=== PATIENT | female | born 1930 | race Caucasian/White ===

== ENCOUNTER → 2016-09-20 | Outpatient (CLI) | payer OTHER ==
[~2016-09-20] MED LIST: AMLO-110 PO; ASPEC81 PO; ATEN-173 PO; CHOL100027 PO; CLTP PO; FURO-85 PO; ISOS30TA3 PO; LEVO50TA PO; LISI-725 PO; MULT-190 PO; MULT-506 PO; POTA-327 PO; SIMV20TA5 PO; ZNT/150 PO
[2016-09-20 17:45] LABS: MEAN CELL VOLUME 91.6 fL (80-100); MEAN CORPUSCULAR HGB CONC 33.9 g/dl (32-36); MEAN PLATELET VOLUME 10.8 fL (7.4-10.4); PLATELET COUNT 182 K/uL (130-400); RED BLOOD COUNT 3.93 M/uL (4.2-5.4); WHITE BLOOD COUNT 5.93 K/uL (4.8-10.8)
[2016-09-20 17:46] LABS: BLOOD UREA NITROGEN 30 mg/dl (7-18); BUN/CREATININE RATIO 17.9 (10-20); CALCIUM 9.4 mg/dl (8.5-10.1); CARBON DIOXIDE 24 mmol/L (21-32); CHLORIDE 105 mmol/L (98-107); GLUCOSE 110 mg/dl (70-99); POTASSIUM 4.3 mmol/L (3.5-5.1); SODIUM 137 mmol/L (136-145)
[2016-09-20 17:47] LABS: PHOSPHORUS 3.8 mg/dl (2.5-4.9)
[2016-09-20 17:56] LABS: URINE PROTIEN/CREAT RATIO 0.3 (0-0.2); URINE TOTAL PROTEIN 17.9 mg/dl (0-11.9)
[2016-09-20 18:03] LABS: URINE APPEARANCE CLEAR (CLEAR); URINE BILIRUBIN NEG (NEG); URINE COLOR YELLOW; URINE EPITHELIAL CELL AUTO >30 /lpf (0-5); URINE NITRITE NEG (NEG); URINE PH 5.5 (4.5-7.5); URINE SPECIFIC GRAVITY 1.006 (1.000-1.030); UROBILINOGEN NEG (NEG)
[2016-09-20 18:09] LABS: MANUAL MICROSCOPIC REQUIRED? NO; REVIEW REQ? NO
== END | disposition home or self-care (01) ==
LOC: C.LABPVFM 13:26
PROVIDERS: ATTEND Internal Medicine Nephrology
DX: I12.9 Hypertensive chronic kidney disease with stage 1 through stage 4 chronic kidney disease, or unspecified chronic kidney disease (principal); N18.3 Chronic kidney disease, stage 3 (moderate); N25.81 Secondary hyperparathyroidism of renal origin; R80.9 Proteinuria, unspecified; D64.9 Anemia, unspecified; H90.2 Conductive hearing loss, unspecified

== ENCOUNTER → 2016-12-11 | Outpatient (CLI) | payer OTHER ==
[2016-12-11 13:15] LABS: ESTIMATED AVERAGE GLUCOSE 169 mg/dl; HA1C FLAG Normal (Normal)
[2016-12-11 13:49] LABS: BLOOD UREA NITROGEN 41 mg/dl (7-18); BUN/CREATININE RATIO 22.6 (10-20); CALCIUM 9.8 mg/dl (8.5-10.1); CARBON DIOXIDE 22 mmol/L (21-32); CHLORIDE 106 mmol/L (98-107); CHOLESTEROL 152 mg/dl (0-200); GLUCOSE 123 mg/dl (70-99); POTASSIUM 4.6 mmol/L (3.5-5.1); SODIUM 140 mmol/L (136-145); TRIGLYCERIDES 324 mg/dl (0-150); VERY LOW DENSITY LIPOPROT CALC 65 mg/dl
[2016-12-11 13:56] LABS: CHOLESTEROL/HDL RATIO 3.5; HDL CHOLESTEROL 43 mg/dl; LDL CHOLESTEROL CALCULATED 44 mg/dl
== END | disposition home or self-care (01) ==
LOC: C.LABPVFM 10:00
PROVIDERS: ATTEND Family Medicine
DX: E78.2 Mixed hyperlipidemia (principal); E11.9 Type 2 diabetes mellitus without complications; E03.9 Hypothyroidism, unspecified

== ENCOUNTER → 2017-03-22 | Outpatient (CLI) | payer OTHER ==
[2017-03-22 12:20] LABS: HEMATOCRIT 36.2 % (37-47); MEAN CELL VOLUME 95.3 fL (80-100); MEAN CORPUSCULAR HEMOGLOBIN 31.6 pg (25-34); MEAN CORPUSCULAR HGB CONC 33.1 g/dl (32-36); MEAN PLATELET VOLUME 10.5 fL (7.4-10.4); PLATELET COUNT 185 K/uL (130-400); WHITE BLOOD COUNT 5.65 K/uL (4.8-10.8)
[2017-03-22 12:37] LABS: URINE APPEARANCE CLEAR (CLEAR); URINE BILIRUBIN NEG (NEG); URINE COLOR YELLOW; URINE EPITHELIAL CELL AUTO >30 /lpf (0-5); URINE NITRITE NEG (NEG); URINE SPECIFIC GRAVITY 1.015 (1.000-1.030); UROBILINOGEN NEG (NEG)
[2017-03-22 12:46] LABS: MANUAL MICROSCOPIC REQUIRED? NO; REVIEW REQ? NO
[2017-03-22 12:48] LABS: URINE PROTIEN/CREAT RATIO 0.3 (0-0.2); URINE TOTAL PROTEIN 10.3 mg/dl (0-11.9)
[2017-03-22 13:00] LABS: BLOOD UREA NITROGEN 41 mg/dl (7-18); BUN/CREATININE RATIO 22.8 (10-20); CALCIUM 9.8 mg/dl (8.5-10.1); CARBON DIOXIDE 22 mmol/L (21-32); CHLORIDE 106 mmol/L (98-107); GLUCOSE 163 mg/dl (70-99); POTASSIUM 4.6 mmol/L (3.5-5.1); SODIUM 135 mmol/L (136-145)
[2017-03-22 13:01] LABS: PHOSPHORUS 3.7 mg/dl (2.5-4.9)
== END | disposition home or self-care (01) ==
LOC: C.LABPVFM 09:34
PROVIDERS: ATTEND Internal Medicine Nephrology
DX: I12.9 Hypertensive chronic kidney disease with stage 1 through stage 4 chronic kidney disease, or unspecified chronic kidney disease (principal); N18.3 Chronic kidney disease, stage 3 (moderate); N25.81 Secondary hyperparathyroidism of renal origin; R80.9 Proteinuria, unspecified; D64.9 Anemia, unspecified

== ENCOUNTER → 2017-08-15 | Outpatient (CLI) | payer OTHER ==
[2017-08-15 12:57] LABS: HEMATOCRIT 35.6 % (37-47); MEAN CELL VOLUME 94.7 fL (80-100); MEAN CORPUSCULAR HEMOGLOBIN 31.9 pg (25-34); MEAN CORPUSCULAR HGB CONC 33.7 g/dl (32-36); MEAN PLATELET VOLUME 10.4 fL (7.4-10.4); PLATELET COUNT 181 K/uL (130-400); RED CELL DISTRIBUTION WIDTH CV 13.6 % (11.5-14.5); RED CELL DISTRIBUTION WIDTH SD 46.7 fL (36.4-46.3)
[2017-08-15 13:21] LABS: ALBUMIN 3.5 gm/dl (3.4-5.0); ALT/SGPT 19 U/L (12-78); AST/SGOT 14 U/L (15-37); BLOOD UREA NITROGEN 31 mg/dl (7-18); CALCIUM 9.5 mg/dl (8.5-10.1); CARBON DIOXIDE 24 mmol/L (21-32); CREATININE 1.71 mg/dl (0.60-1.20); GLUCOSE 129 mg/dl (70-99); HEMOGLOBIN A1C 7.4 % (4.5-5.6); POTASSIUM 4.2 mmol/L (3.5-5.1); SODIUM 135 mmol/L (136-145)
[2017-08-15 13:23] LABS: ALKALINE PHOSPHATASE 81 U/L (45-117); CHOLESTEROL 162 mg/dl (0-200); LDL CHOLESTEROL CALCULATED 50 mg/dl
== END | disposition home or self-care (01) ==
LOC: C.LABPVFM 10:28
PROVIDERS: ATTEND Family Medicine
DX: E03.9 Hypothyroidism, unspecified (principal); E78.2 Mixed hyperlipidemia

== ENCOUNTER → 2017-09-18 | Outpatient (CLI) | payer OTHER ==
[2017-09-18 17:38] LABS: HEMATOCRIT 35.4 % (37-47); MEAN CELL VOLUME 95.2 fL (80-100); MEAN CORPUSCULAR HEMOGLOBIN 32.3 pg (25-34); MEAN CORPUSCULAR HGB CONC 33.9 g/dl (32-36); MEAN PLATELET VOLUME 10.5 fL (7.4-10.4); PLATELET COUNT 209 K/uL (130-400); RED CELL DISTRIBUTION WIDTH CV 13.4 % (11.5-14.5); RED CELL DISTRIBUTION WIDTH SD 46.6 fL (36.4-46.3); WHITE BLOOD COUNT 5.92 K/uL (4.8-10.8)
[2017-09-18 18:13] LABS: ALBUMIN 3.7 gm/dl (3.4-5.0); BLOOD UREA NITROGEN 31 mg/dl (7-18); CALCIUM 9.9 mg/dl (8.5-10.1); CARBON DIOXIDE 24 mmol/L (21-32); CREATININE 1.71 mg/dl (0.60-1.20); GLUCOSE 108 mg/dl (70-99); PHOSPHORUS 3.6 mg/dl (2.5-4.9); SODIUM 136 mmol/L (136-145)
== END | disposition home or self-care (01) ==
LOC: C.LABPVFM 13:05
PROVIDERS: ATTEND Internal Medicine Nephrology
DX: N18.3 Chronic kidney disease, stage 3 (moderate) (principal); N25.81 Secondary hyperparathyroidism of renal origin; D64.9 Anemia, unspecified; R80.9 Proteinuria, unspecified

== ENCOUNTER → 2017-09-23 | Outpatient (CLI) | payer OTHER | END | disposition home or self-care (01) | LOC: C.LABPVFM 18:07 | PROVIDERS: ATTEND Internal Medicine Nephrology | DX: N18.3 Chronic kidney disease, stage 3 (moderate) (principal); I12.9 Hypertensive chronic kidney disease with stage 1 through stage 4 chronic kidney disease, or unspecified chronic kidney disease; N25.81 Secondary hyperparathyroidism of renal origin; D64.9 Anemia, unspecified; R80.9 Proteinuria, unspecified ==

== ENCOUNTER → 2018-02-11 | Outpatient (CLI) | payer OTHER ==
[~2018-02-11] MED LIST changes: -AMLO-110 PO; +AMLO5TAB3 PO
[2018-02-11 17:11] LABS: BASO % 0.3 %; BASO ABS # 0.02 K/uL (0-0.2); HEMATOCRIT 35.8 % (37-47); HEMOGLOBIN 12.1 g/dL (12.0-16.0); IG# 0.02 K/uL (0.00-0.02); LYMPH % 20.8 %; LYMPH ABS # 1.35 K/uL (1.2-3.4); MEAN CELL VOLUME 96.5 fL (80-100); MEAN CORPUSCULAR HEMOGLOBIN 32.6 pg (25-34); MEAN CORPUSCULAR HGB CONC 33.8 g/dl (32-36); MEAN PLATELET VOLUME 10.6 fL (7.4-10.4); MONO ABS # 0.65 K/uL (0.11-0.59); NEUT % 68.6 %; NEUT ABS # 4.45 K/uL (1.4-6.5); PLATELET COUNT 194 K/uL (130-400); RED CELL DISTRIBUTION WIDTH CV 13.2 % (11.5-14.5); RED CELL DISTRIBUTION WIDTH SD 45.8 fL (36.4-46.3); WHITE BLOOD COUNT 6.49 K/uL (4.8-10.8)
[2018-02-11 17:31] LABS: ALKALINE PHOSPHATASE 82 U/L (45-117); ALT/SGPT 18 U/L (12-78); AST/SGOT 17 U/L (15-37); BLOOD UREA NITROGEN 42 mg/dl (7-18); CALCIUM 9.5 mg/dl (8.5-10.1); CARBON DIOXIDE 23 mmol/L (21-32); CHOLESTEROL 153 mg/dl (0-200); CREATININE 1.94 mg/dl (0.60-1.20); GLUCOSE 100 mg/dl (70-99); LDL CHOLESTEROL CALCULATED 51 mg/dl; POTASSIUM 4.3 mmol/L (3.5-5.1); SODIUM 136 mmol/L (136-145); TOTAL PROTEIN 8.1 gm/dl (6.4-8.2)
[2018-02-12 06:17] LABS: HEMOGLOBIN A1C 7.3 % (4.5-5.6)
== END | disposition home or self-care (01) ==
LOC: C.LABPVFM 13:25
PROVIDERS: ATTEND Family Medicine
DX: R41.3 Other amnesia (principal); I12.9 Hypertensive chronic kidney disease with stage 1 through stage 4 chronic kidney disease, or unspecified chronic kidney disease; E11.9 Type 2 diabetes mellitus without complications; N18.3 Chronic kidney disease, stage 3 (moderate)

== ENCOUNTER 2020-03-25 19:00 | Inpatient (IN) ==
[2020-03-25] MEDS ORDERED: ONDANSETRON INJ 2 MG/ML 2 ML VIAL IV STA (19:34)
[2020-03-25] MEDS: fentaNYL citrate 100 MCG/2 ML VIAL IV PRN ×2 (19:50→20:40)
--- NOTE | 2020-03-25 20:03 | XRay Report ---
XR chest 1V portable HISTORY: Atypical Chest Pain COMPARISON: Chest 08/26/2013. FINDINGS: No focal lung consolidations to suggest pneumonia. No evidence for pulmonary edema. The hea rt is normal in size. There is a left-sided dual-chamber pacemaker. No pleural effusions. No pneumoth orax. The bones are osteopenic. IMPRESSION: No significant change compared to the prior study. No acute process. ACT 112: Negative or not required by law. Electronically signed by: Uli Reyes M.D. 03/25/2020 8:02 PM
[2020-03-25 20:19] LABS: Basophils # (auto) 0.02 K/uL (0-0.2); Basophils % (auto) 0.2 %; Hematocrit (blood only) 38.1 % (37-47); Hemoglobin 13.1 g/dL (12.0-16.0); Immature Granulocytes # (auto) 0.09 K/uL (0.00-0.02); Immature Granulocytes % (auto) 0.7 %; Lymphocytes # (auto) 0.79 K/uL (1.2-3.4); Lymphocytes % (auto) 5.9 %; Mean Corpuscular Hemoglobin 31.2 pg (25-34); Mean Corpuscular Hgb Conc 34.4 g/dL (32-36); Mean Corpuscular Volume 90.7 fL (80-100); Mean Platelet Volume 9.2 fL (7.4-10.4); Monocytes # (auto) 0.73 K/uL (0.11-0.59); Monocytes % (auto) 5.5 %; Neutrophils # (auto) 11.68 K/uL (1.4-6.5); Neutrophils % (auto) 87.7 %; Platelet Count 176 K/uL (130-400); RDW Coefficient of Variation 13.3 % (11.5-14.5); RDW Standard Deviation 43.9 fL (36.4-46.3); White Blood Count 13.31 K/uL (4.8-10.8)
[2020-03-25 20:30] LABS: INR 1.1 (0.9-1.1); Partial Thromboplastin Ratio 1.2; Partial Thromboplastin Time 33.5 Seconds (21.0-31.0); Prothrombin Time 11.2 Seconds (9.0-12.0)
[2020-03-25 20:36] LABS: Alanine Aminotransferase 18 U/L (12-78); Albumin Level 3.2 gm/dl (3.4-5.0); Aspartate Aminotransferase 17 U/L (15-37); BUN Creatinine Ratio 26.5 (10-20); Blood Urea Nitrogen 40 mg/dl (7-18); Calcium 9.5 mg/dl (8.5-10.1); Carbon Dioxide 14 mmol/L (21-32); Chloride 102 mmol/L (98-107); Creatinine Clr Calc Pharmacy 24.5 ml/min; Est GFR (African American) 35.7; Est GFR (Non-African American) 30.8; Glucose 192 mg/dl (70-99); Lipase 300 U/L (73-393); Potassium 4.1 mmol/L (3.5-5.1); Sodium 130 mmol/L (136-145)
[2020-03-25 20:39] LABS: Albumin Globulin Ratio 0.7 (0.9-2); Alkaline Phosphatase 108 U/L (45-117); Bilirubin,Total 0.5 mg/dl (0.2-1); Globulin 4.3 gm/dl (2.5-4.0); Total Protein 7.5 gm/dl (6.4-8.2); Troponin I < 0.015 ng/ml (0-0.045)
--- NOTE | 2020-03-25 20:49 | CT Scan Report ---
ABDOMEN AND PELVIS CT WITHOUT CONTRAST CT DOSE: 736.93 mGy.cm HISTORY: Lower abdominal pain. TECHNIQUE: Multiaxial CT images of the abdomen and pelvis were performed without contrast. A dose lo wering technique was utilized adhering to the principles of ALARA. COMPARISON STUDY: None. FINDINGS: There is a 4 mm nodule within the right middle lobe. There are also 4 mm nodules within the lingula and left lower lobe on image 57. Pacemaker wires are noted. No pneumoperitoneum. No pneumato sis. No suspicious lytic or blastic osseous lesions. Suboptimal evaluation due to the motion artifact . Specifically, this affects the right upper quadrant with near nondiagnostic evaluation of the dista l stomach/duodenum, herbie hepatis, and pancreatic head. The gallbladder appears surgically absent. Th e unenhanced liver, pancreas, and spleen appear grossly unremarkable. Normal adrenal glands. The kidn eys are also suboptimally assessed due to motion artifact. However, no hydronephrosis. No retroperito nayely lymphadenopathy. Moderate calcified plaque within the normal caliber abdominal aorta. There is a large duodenal diverticulum. Questionable inflammatory change surrounding the proximal duodenum. How ever, this could be due to the motion artifact. The bladder is unremarkable. There is a 3 cm calcifie d uterine fibroid. There is are within normal limits. Mild pelvic floor collapse. Suboptimal evaluati on for bowel pathology due to the lack of intravenous and oral contrast. Extensive colonic diverticul osis. No evidence for acute diverticulitis. No evidence for bowel obstruction. IMPRESSION: 1. Suboptimal evaluation due to the lack of intravenous contrast and motion artifact within the upper abdomen. 2. There is question of inflammatory change surrounding the proximal duodenum which could be due to m otion artifact. This raises the possibility of a duodenitis or early acute pancreatitis. Recommend co rrelation with pancreatic enzymes for further evaluation. Endoscopy should also be considered if the patient is complaining of right upper quadrant pain to exclude the possibility of a duodenitis/peptic ulcer disease. 3. Colonic diverticulosis. No evidence for acute diverticulitis. 4. Additional findings as described above. ACT 112: Negative or not required by law. Electronically signed by: Uli Reyes M.D. 03/25/2020 8:48 PM
[2020-03-25] MEDS ORDERED: PANTOprazole 40 MG in SYRINGE 0 ML IV ONE (21:04)
[2020-03-25] MEDS ORDERED: SUCRALFATE 1 GM TAB PO STA (21:04)
[2020-03-25] MEDS ORDERED: FAMOTIDINE 20MG IV PUSH 20 MG/5 ML SYR IV STA (21:04)
[2020-03-25] MEDS ORDERED: GI COCKTAIL ED USE PO ONE (21:04)
--- NOTE | 2020-03-25 21:10 | Emergency Department Note ---
Impression & Plan Acute duodenitis, Chest pain, Abdominal pain, acute, epigastric, Complete left bundle branch block ED Provider Note NAME: SHALOM LARA AGE: 89 SEX: F : 1930 ARRIVES VIA: Ambulance INFORMANT: Patient, patient's daughter ED PROVIDER(S): Vinicius Baxter DO CHIEF COMPLAINT: Epigastric pain HPI: The patient is an 89-year-old female who presented to the emergency department for an evaluation of epigastric pain and chest pain. The patient presented to the emergency department by ambulance. The patient started having pain over the last few days. She looks very uncomfortable according to her daughter. She does have some underlying dementia. She also has significant hearing difficulty. Apparently the patient has not had similar symptoms in the past. She is also noticed some GI upset and loose bowel movements. She is had no fever. She is had no cough. She is not complain of shortness of breath although at times her daughter states that she looks to be having difficulty breathing. She states her pain is moderate to severe at this time. ROS: See above HPI for pertinent positives & negatives. A total of 10 systems reviewed and were otherwise negative. PAST MEDICAL HISTORY: See Below PAST SURGICAL HISTORY: See Below FAMILY HISTORY: See Below SOCIAL HISTORY: See Below HOME MEDICATIONS: See Below ALLERGIES: See Below VITALS: See Below PHYSICAL EXAMINATION: GENERAL: The patient is awake and alert. She is very anxious appearing and appears to be in significant pain. EYES: The conjunctivae are clear. The pupils are round and reactive. EARS, NOSE, MOUTH AND THROAT: The nose is without any evidence of any deformity. Mucous membranes are moist. Tongue is midline. NECK: The neck is nontender and supple. RESPIRATORY: Normal respiratory effort is noted there is no evidence of wheezing rhonchi or rales CARDIOVASCULAR: Regular rate and rhythm noted there no murmurs rubs or gallops normal S1 normal S2. GASTROINTESTINAL: The abdomen is moderately distended and diffusely tender. There is no guarding or rigidity but significant pain is noted in the epigastric region. MUSCULOSKELETAL/EXTREMITIES: There is no evidence of gross deformity full range of motion is noted in the hips and shoulders. SKIN: Pedal edema was noted bilaterally. NEUROLOGIC: The patient is awake and alert. She follows commands well. Strength is diminished but symmetric. MEDICAL DECISION MAKING: The patient is an 89-year-old female who presented to the emergency department for an evaluation of epigastric and chest pain. The patient had very signi ficant chest pain as well as epigastric pain on palpation. She was found to have a new left bundle branch block. I discussed the patient's laboratory and radiographic studies with her and her daughter. The patient was found to have signs of duodenitis on CT. She was treated with proton pump inhibitor pain medication H2 blockers and was reevaluated multiple times. Given her findings the [facility] hospitalist group was notified about the patient. They will evaluate the patient in the emergency department for further management and disposition. Triage Nursing notes reviewed. Prior medical records reviewed Vital Signs: reviewed and remarkable for no significant abnormalities Differential diagnosis: Cardiac ischemia, aortic dissection, pulmonary embolism, pneumothorax, pneumonia, pericarditis, myocarditis, esophageal rupture, GERD, cholecystitis, pancreatitis, musculoskeletal, as well as other pathologies. ER treatment provided: See below Diagnostics interpreted by me: ECG: EKG was obtained in the emergency department. My interpretation is normal sinus rhythm at 98 bpm. Left bundle branch block pattern was noted. There was lateral ST depressions noted. This was compared to a tracing from August 262013. The left bundle branch block is new compared to the earlier tracing. Cardiac Monitoring: An order was placed for continuous cardiac monitoring. The monitor shows a rate of 95 bpm with sinus rhythm. Laboratory studies: As stated above and show below. Imaging studies: See below Consultation(s): The [facility] hospitalist group was consulted about the patient. Past Med/Surg History Medical History Abscess of back Anemia Asthma Chronic kidney disease, stage 3 (moderate) Chronic reflux esophagitis Depression Hypertension Hypothyroidism Memory loss Mixed hyperlipidemia Pacemaker Secondary hyperparathyroidism Sensorineural hearing loss Vitamin D deficiency Surgical History No history of previous surgery Family History Denies family history of Ovarian cancer Prostate cancer Myocardial infarction Breast cancer Colorectal cancer Social History Smoking Status: Unknown if ever smoked Hx Alcohol Use: No Hx Substance Use: No marital status: Single Current Living Situation: Alone current occupational status: retired Feels Safe at Home: Yes caffeine: Yes Dental Care, Regularly: No Physical Activity Frequency: Does not Exercise Seatbelt Use: always Sunscreen Use: No Allergies Allergies Allergy/AdvReac Type Severity Reaction Status Date / Time levothyroxine Allergy Intermediate hives Verified 03/25/20 21:58 Home Meds Home Medications Medication Instructions Recorded Confirmed calcium carbonate-vitamin D3 600 1 cap PO DAILY cap 01/23/19 03/25/20 mg calcium-200 unit capsule multivitamin 1 tab PO DAILY 01/23/19 03/25/20 albuterol sulfate 2 puff INHALATION Q6H PRN 03/25/20 03/25/20 amlodipine [Norvasc] 2.5 mg PO DAILY 03/25/20 03/25/20 aspirin [Aspirin Low Dose] 81 mg PO DAILY 03/25/20 03/25/20 levothyroxine [Synthroid] 25 mcg PO DAILY 03/25/20 03/25/20 metoprolol succinate [Toprol XL] 50 mg PO BID 03/25/20 03/25/20 mometasone [Asmanex Twisthaler] 1 inh INHALATION BID 03/25/20 03/25/20 simvastatin [Zocor] 20 mg PO HS 03/25/20 03/25/20 vitamins A,C,[id number] 1 tab PO DAILY 03/25/20 03/25/20 [Ocuvite Preservision] Previous Rx's Medication Instructions Recorded isosorbide mononitrate 30 mg 60 mg PO DAILY #180 tab 01/23/19 tablet,extended release 24 hr lancets #50 ea 01/23/19 lisinopril 10 mg tablet 10 mg PO DAILY #90 tab 01/05/20 memantine 14 mg capsule 14 mg PO DAILY #30 cap 03/07/20 sprinkle,extended release 24hr Results & Data (ED) Vital Signs Vital Signs - 24 hr 03/25/20 19:00 03/25/20 19:38 03/25/20 21:00 Temperature 36.8 C Temperature Source Oral Pulse Rate 98 H 90 Pulse Rate [Right Finger] 90 Respiratory Rate 18 16 Respiratory Depth Normal Respiratory Pattern Regular Blood Pressure 149/86 H Blood Pressure [Right Arm] 133/71 Blood Pressure Mean 107 Blood Pressure Mean [Right Arm] 91 Blood Pressure Position Lying Blood Pressure Position [Right Arm] Lying Pulse Oximetry 98 98 98 Oxygen Delivery Method Room Air Room Air Room Air Oxygen Flow Rate 0 Sepsis Recent Fever Within 48 Hours No Sepsis New/Unexplained Change in Mental Status No Sepsis Action Taken by Nursing No Action Required Home Medications Current Medication List: was personally reviewed by me Laboratory Data Attestation: I reviewed the patient's lab results. Result diagrams: 03/25/20 20:03 03/25/20 20:03 Lab Results 03/25/20 03/25/20 03/25/20 Range/Units 20:03 20:03 20:03 WBC 13.31 H (4.8-10.8) K/uL RBC 4.20 (4.2-5.4) M/uL Hgb 13.1 (12.0-16.0) g/dL Hct 38.1 (37-47) % MCV 90.7 (80-100) fL MCH 31.2 (25-34) pg MCHC 34.4 (32-36) g/dL RDW Std Deviation 43.9 (36.4-46.3) fL RDW Coeff of Curt 13.3 (11.5-14.5) % Plt Count 176 (130-400) K/uL MPV 9.2 (7.4-10.4) fL Immature Gran % (Auto) 0.7 % Neut % (Auto) 87.7 % Lymph % (Auto) 5.9 % [place] % (Auto) 5.5 % Eos % (Auto) 0.0 % Baso % (Auto) 0.2 % Neut # (Auto) 11.68 H (1.4-6.5) K/uL Lymph # (Auto) 0.79 L (1.2-3.4) K/uL Independence # (Auto) 0.73 H (0.11-0.59) K/uL Eos # (Auto) 0.00 (0-0.5) K/uL Baso # (Auto) 0.02 (0-0.2) K/uL Immature Gran # (Auto) 0.09 H (0.00-0.02) K/uL PT 11.2 (9.0-12.0) Seconds INR 1.1 (0.9-1.1) APTT 33.5 H (21.0-31.0) Seconds PTT Ratio 1.2 Sodium 130 L (136-145) mmol/L Potassium 4.1 (3.5-5.1) mmol/L Chloride 102 (98-107) mmol/L Carbon Dioxide 14 L (21-32) mmol/L Anion Gap 14.0 H (3-11) BUN 40 H (7-18) mg/dl Creatinine 1.50 H (0.6-1.2) mg/dl Est Cr Clr Drug Dosing 24.5 ml/min Est GFR ( Amer) 35.7 Est GFR (Non-Af Amer) 30.8 BUN/Creatinine Ratio 26.5 H (10-20) Glucose 192 H (70-99) mg/dl Calcium 9.5 (8.5-10.1) mg/dl Total Bilirubin 0.5 (0.2-1) mg/dl AST 17 (15-37) U/L ALT 18 (12-78) U/L Alkaline Phosphatase 108 (45-117) U/L Troponin I < 0.015 (0-0.045) ng/ml Total Protein 7.5 (6.4-8.2) gm/dl Albumin 3.2 L (3.4-5.0) gm/dl Globulin 4.3 H (2.5-4.0) gm/dl Albumin/Globulin Ratio 0.7 L (0.9-2) Lipase 300 (73-393) U/L Administered Medications Fentanyl Citrate (Fentanyl Citrate 100 Mcg/2 Ml Vial) 50 mcg IV Q15M PRN PRN Reason: Pain Stop: 04/08/20 19:33 Last Admin: 03/25/20 20:40 Dose: 50 mcg Documented by: [id number] Admin: 03/25/20 19:50 Dose: 50 mcg Documented by: [id number] Discontinued Medications Al Hydrox/Mg Hydrox/Simethicone (Gi Cocktail Ed Use) 1 dose PO ONE ONE Stop: 03/25/20 21:05 Last Admin: 03/25/20 21:43 Dose: Not Given Documented by: [id number] Pantoprazole Sodium 40 mg/ (Syringe) 10 mls @ 5 mls/min IV NOW ONE Stop: 03/25/20 21:05 Last Admin: 03/25/20 21:38 Dose: 5 mls/min Documented by: [id number] Famotidine (Pepcid 20mg Iv Push) 20 mg in 5 mls @ 2.5 mls/min IV NOW STA Stop: 03/25/20 21:05 Last Admin: 03/25/20 21:38 Dose: 2.5 mls/min Documented by: [id number] Ceftriaxone Sodium (Rocephin) 1,000 mg in 50 mls @ 100 mls/hr IV NOW STA Stop: 03/25/20 21:40 Last Admin: 03/25/20 21:39 Dose: 100 mls/hr Documented by: [id number] Ondansetron HCl (Ondansetron Inj 2 Mg/Ml 2 Ml Vial) 4 mg IV NOW STA Stop: 03/25/20 19:35 Last Admin: 03/25/20 19:50 Dose: 4 mg Documented by: [id number] Sucralfate (Sucralfate 1 Gm Tab) 1 gm PO NOW STA Stop: 03/25/20 21:05 Last Admin: 03/25/20 21:39 Dose: 1 gm Documented by: [id number] Imaging Data Radiologist's Impression: XR chest 1V portable HISTORY: Atypical Chest Pain COMPARISON: Chest 08/26/2013. FINDINGS: No focal lung consolidations to suggest pneumonia. No evidence for pulmonary edema. The heart is normal in size. There is a left-sided dual-chamber pacemaker. No pleural effusions. No pneumothorax. The bones are osteopenic. IMPRESSION: No significant change compared to the prior study. No acute process. ACT 112: Negative or not required by law. Electronically signed by: Uli Reyes M.D. 03/25/2020 8:02 PM Dictated: 03/25/202000 Transcribed: 03/25/[address] WITHOUT CONTRAST CT DOSE: 736.93 mGy.cm HISTORY: Lower abdominal pain. TECHNIQUE: Multiaxial CT images of the abdomen and pelvis were performed without contrast. A dose lowering technique was utilized adhering to the principles of ALARA. COMPARISON STUDY: None. FINDINGS: There is a 4 mm nodule within the right middle lobe. There are also 4 mm nodules within the lingula and left lower lobe on image 57. Pacemaker wires are noted. No pneumoperitoneum. No pneumatosis. No suspicious lytic or blastic osseous lesions. Suboptimal evaluation due to the motion artifact. Specifically, this affects the right upper quadrant with near nondiagnostic evaluation of the distal stomach/duodenum, herbie hepatis, and pancreatic head. The gallbladder appears surgically absent. The unenhanced liver, pancreas, and spleen appear grossly unremarkable. Normal adrenal glands. The kidneys are also suboptimally assessed due to motion artifact. However, no hydronephrosis. No retroperitoneal lymphadenopathy. Moderate calcified plaque within the normal caliber abdominal aorta. There is a large duodenal diverticulum. Questionable inflammatory change surrounding the proximal duodenum. However, this could be due to the motion artifact. The bladder is unremarkable. There is a 3 cm calcified uterine fibroid. There is are within normal limits. Mild pelvic floor collapse. Suboptimal evaluation for bowel pathology due to the lack of intravenous and oral contrast. Extensive colonic diverticulosis. No evidence for acute diverticulitis. No evidence for bowel obstruction. IMPRESSION: 1. Suboptimal evaluation due to the lack of intravenous contrast and motion artifact within the upper abdomen. 2. There is question of inflammatory change surrounding the proximal duodenum which could be due to motion artifact. This raises the possibility of a duodenitis or early acute pancreatitis. Recommend correlation with pancreatic enzymes for further evaluation. Endoscopy should also be considered if the patient is complaining of right upper quadrant pain to exclude the possibility of a duodenitis/peptic ulcer disease. 3. Colonic diverticulosis. No evidence for acute diverticulitis. 4. Additional findings as described above. ACT 112: Negative or not required by law. Electronically signed by: Uli Reyes M.D. 03/25/2020 8:48 PM Dictated: 03/25/202037 Transcribed: 03/25/202037 Blood Pressure Blood Pressure Findings: Normal blood pressure Discharge Plan Visit Data Chief Complaint: Chest Pain Stated Complaint: cp ED Provider: Vinicius Baxter Discharge Problem: Acute duodenitis, Chest pain, Abdominal pain, acute, epigastric, Complete left bundle branch block Patient Disposition: Being Evaluated by Hospitalist Condition: Good Forms Stand Alone Forms: My [employer] Prescriptions Prescriptions: No Action lisinopril 10 mg tablet 10 mg PO DAILY Qty: 90 RF: 3 memantine 14 mg capsule,sprinkle,ER 24hr 14 mg PO DAILY Qty: 30 RF: 5 multivitamin [Daily Multi-Vitamin] tablet 1 tab PO DAILY RF: 0 Calcium 600 + D(3) 600 mg calcium- 200 unit capsule 1 cap PO DAILY RF: 0 isosorbide mononitrate 30 mg tablet extended release 24 hr 60 mg PO DAILY Qty: 180 RF: 0 aspirin [Aspirin Low Dose] 81 mg Tablet,Delayed Release (Dr/Ec) 81 mg PO DAILY RF: 0 amlodipine [Norvasc] 5 mg tablet 2.5 mg PO DAILY RF: 0 levothyroxine [Synthroid] 25 mcg tablet 25 mcg PO DAILY RF: 0 simvastatin [Zocor] 20 mg tablet 20 mg PO HS RF: 0 metoprolol succinate [Toprol XL] 50 mg tablet extended release 24 hr 50 mg PO BID RF: 0 albuterol sulfate 90 mcg/actuation Hfa Aerosol Inhaler 2 puff INHALATION Q6H PRN (Reason: Shortness Of Breath Or Wheezing) RF: 0 Asmanex Twisthaler 220 mcg/ actuation (120) Aerosol Powdr Breath Activated 1 inh INHALATION BID RF: 0 Ocuvite Preservision [id number] Tablet 1 tab PO DAILY RF: 0 Referrals Referrals: Esme Vick MD [Primary Care Provider] -
[2020-03-25] MEDS ORDERED: cefTRIAXone SODIUM 1,000 MG/50 ML BAG IV STA (21:11)
[2020-03-25] MEDS ORDERED: SODIUM CHLORIDE 0.9% 1000ML 1,000 ML IV ONE (22:05)
--- NOTE | 2020-03-25 23:22 | History & Physical Report ---
Date of Service March 25, 2020 Assessment & Plan (1) Acute duodenitis: CT of abdomen pelvis suggestive of possible duodenitis versus peptic ulcer disease. Placed on pantoprazole 40 mg IV twice daily. NPO except essential medications NSS@100 mils per hour Consult gastroenterology Present on Admission?: Yes (2) Hypertension: Hypertension/left bundle branch block/pacer- The patient will be admitted to telemetry for serial cardiac enzymes, serial EKG's, cardiac rhythm monitoring and a 2-D echocardiogram with Dopplers. Symptoms more suggestive of a GI cause, but cardiac cause is possible and this is an anginal equivalent Present on Admission?: Yes (3) Mixed hyperlipidemia: Continue simvastatin Present on Admission?: Yes (4) Memory loss: Hold memantine for possible side effects. Present on Admission?: Yes (5) Complete left bundle branch block: (6) H/O cardiac pacemaker: (7) Diabetes: Place on Accu-Cheks before meals and at bedtime with NovoLog coverage per scale. Check hemoglobin A1c Present on Admission?: Yes (8) Chronic kidney disease, stage 3 (moderate): Creatinine 1.50 upon admission, which is in the low end of her range. Follow serially Present on Admission?: Yes History of Present Illness Chief Complaint: The patient presents to the emergency department with complaint of epigastric and substernal chest discomfort with shortness of breath over the past few days. Primary Care Provider: Esme Vick MD The patient is AN 89-year-old female with a past medical history including dementia, vitamin D deficiency, hypertension, diabetes mellitus with renal manifestations, sensorineural hearing loss, secondary hyperparathyroidism, pacemaker, mixed hyperlipidemia, memory loss, hypothyroidism, depression, chronic reflux esophagitis, CKD stage III, and hypertension. Her daughter who is with her, acts as primary historian, and reports that she received a call earlier in the day from her superintendent car construction that her mother was not breathing as well as usual and was complaining of the chest and epigastric pain. Allergies Allergy/AdvReac Type Severity Reaction Status Date / Time levothyroxine Allergy Intermediate hives Verified 03/25/20 21:58 Home Medications Home Medications Medication Instructions Recorded Confirmed Type calcium carbonate-vitamin D3 600 1 cap PO DAILY cap 01/23/19 03/25/20 History mg calcium-200 unit capsule isosorbide mononitrate 30 mg 60 mg PO DAILY #180 tab 01/23/19 03/25/20 Rx tablet,extended release 24 hr multivitamin 1 tab PO DAILY 01/23/19 03/25/20 History lisinopril 10 mg tablet 10 mg PO DAILY #90 tab 01/05/20 03/25/20 Rx memantine 14 mg capsule 14 mg PO DAILY #30 cap 03/07/20 03/25/20 Rx sprinkle,extended release 24hr amlodipine [Norvasc] 2.5 mg PO DAILY 03/25/20 03/25/20 History aspirin [Aspirin Low Dose] 81 mg PO DAILY 03/25/20 03/25/20 History famotidine [Pepcid] 20 mg PO HS 03/25/20 03/25/20 History levothyroxine [Synthroid] 25 mcg PO DAILY 03/25/20 03/25/20 History metoprolol succinate [Toprol XL] 50 mg PO BID 03/25/20 03/25/20 History simvastatin [Zocor] 20 mg PO HS 03/25/20 03/25/20 History vitamins A,C,U-tiup-tdmblf 1 tab PO DAILY 03/25/20 03/25/20 History [Ocuvite Preservision] Past Med/Surg History Medical History Abscess of back Anemia Asthma Chronic kidney disease, stage 3 (moderate) Chronic reflux esophagitis Depression Hypertension Hypothyroidism Memory loss Mixed hyperlipidemia Pacemaker Secondary hyperparathyroidism Sensorineural hearing loss Vitamin D deficiency Surgical History No history of previous surgery Family History Denies family history of Ovarian cancer Prostate cancer Myocardial infarction Breast cancer Colorectal cancer Social History Smoking Status: Never smoker Hx Alcohol Use: No Hx Substance Use: No Preferred Language: Belarusian Communication Ability: Effective Tongue And Quarter Stitcher Required: No Beliefs That Will Affect Care: None marital status: Single Current Living Situation: Alone current occupational status: retired Other Information That Helps Us Care for You: No Feels Safe at Home: Yes Safety Concerns: Feels Safe At This Time caffeine: Yes Dental Care, Regularly: No Physical Activity Frequency: Does not Exercise Seatbelt Use: always Sunscreen Use: No Review of Systems Review of Systems: Unobtainable due to cognitive status Physical Exam Physical Exam: The patient is awake, alert, well developed and well nourished, normocephalic and atraumatic, lying in bed and in mild to moderate distress. HEENT--PERRL, EOMI, mucous membranes and oropharynx dry. Neck--supple. No JVD. No bruits. Thyroid normal, trachea midline, no adenopathy. Heart--normal S1 and S2. No murmurs, rubs or gallops. Lungs--clear bilaterally, no respiratory distress, no accessory muscle use. Abdomen--normal bowel sounds and soft. Nondistended. Tender epigastric area. Extremities--no cyanosis or clubbing. No edema. Dermatologic--normal skin turgor, normal color, no abnormal lymph nodes, no rash. Neurologic--cranial nerves II through XII grossly intact. Rheumatologic--limited exam Psychiatric--normal affect. Results & Data Results & Data ([facility]) Vital Signs (Past 12 Hours) Vital Signs Temp Pulse Pulse Resp BP BP Pulse Ox 03/25/20 21:00 90 16 133/71 98 03/25/20 19:38 90 98 03/25/20 19:00 98.2 F 98 H 18 149/86 H 98 Laboratory Results Laboratory Results WBC 13.31 K/uL (4.8-10.8) H 03/25/20 20:03 RBC 4.20 M/uL (4.2-5.4) 03/25/20 20:03 Hgb 13.1 g/dL (12.0-16.0) 03/25/20 20:03 Hct 38.1 % (37-47) 03/25/20 20:03 MCV 90.7 fL (80-100) 03/25/20 20:03 MCH 31.2 pg (25-34) 03/25/20 20:03 MCHC 34.4 g/dL (32-36) 03/25/20 20:03 RDW Std Deviation 43.9 fL (36.4-46.3) 03/25/20 20:03 RDW Coeff of Curt 13.3 % (11.5-14.5) 03/25/20 20:03 Plt Count 176 K/uL (130-400) 03/25/20 20:03 MPV 9.2 fL (7.4-10.4) 03/25/20 20:03 Immature Gran % (Auto) 0.7 % 03/25/20 20:03 Neut % (Auto) 87.7 % 03/25/20 20:03 Lymph % (Auto) 5.9 % 03/25/20 20:03 [place] % (Auto) 5.5 % 03/25/20 20:03 Eos % (Auto) 0.0 % 03/25/20 20:03 Baso % (Auto) 0.2 % 03/25/20 20:03 Neut # (Auto) 11.68 K/uL (1.4-6.5) H 03/25/20 20:03 Lymph # (Auto) 0.79 K/uL (1.2-3.4) L 03/25/20 20:03 [place] # (Auto) 0.73 K/uL (0.11-0.59) H 03/25/20 20:03 Eos # (Auto) 0.00 K/uL (0-0.5) 03/25/20 20:03 Baso # (Auto) 0.02 K/uL (0-0.2) 03/25/20 20:03 Immature Gran # (Auto) 0.09 K/uL (0.00-0.02) H 03/25/20 20:03 PT 11.2 Seconds (9.0-12.0) 03/25/20 20:03 INR 1.1 (0.9-1.1) 03/25/20 20:03 APTT 33.5 Seconds (21.0-31.0) H 03/25/20 20:03 PTT Ratio 1.2 03/25/20 20:03 Sodium 130 mmol/L (136-145) L 03/25/20 20:03 Potassium 4.1 mmol/L (3.5-5.1) 03/25/20 20:03 Chloride 102 mmol/L (98-107) 03/25/20 20:03 Carbon Dioxide 14 mmol/L (21-32) L 03/25/20 20:03 Anion Gap 14.0 (3-11) H 03/25/20 20:03 BUN 40 mg/dl (7-18) H 03/25/20 20:03 Creatinine 1.50 mg/dl (0.6-1.2) H 03/25/20 20:03 Est Cr Clr Drug Dosing 24.5 ml/min 03/25/20 20:03 Est GFR ( Amer) 35.7 03/25/20 20:03 Est GFR (Non-Af Amer) 30.8 03/25/20 20:03 BUN/Creatinine Ratio 26.5 (10-20) H 03/25/20 20:03 Glucose 192 mg/dl (70-99) H 03/25/20 20:03 Calcium 9.5 mg/dl (8.5-10.1) 03/25/20 20:03 Total Bilirubin 0.5 mg/dl (0.2-1) 03/25/20 20:03 AST 17 U/L (15-37) 03/25/20 20:03 ALT 18 U/L (12-78) 03/25/20 20:03 Alkaline Phosphatase 108 U/L (45-117) 03/25/20 20:03 Troponin I < 0.015 ng/ml (0-0.045) 03/25/20 20:03 Total Protein 7.5 gm/dl (6.4-8.2) 03/25/20 20:03 Albumin 3.2 gm/dl (3.4-5.0) L 03/25/20 20:03 Globulin 4.3 gm/dl (2.5-4.0) H 03/25/20 20:03 Albumin/Globulin Ratio 0.7 (0.9-2) L 03/25/20 20:03 Lipase 300 U/L (73-393) 03/25/20 20:03 Diagnostic Findings [facility], [place] [phone] CT Scan Report Patient: SHALOM LARA Date: 03/25/20 MR#: [id number]: [id number] Acct ID:[id number]: [address] [facility] Zip: [place] [address] Age: 89Location: ED Sex: FRoom/Bed: Att Phy:Diagnosis: cp Kalani Phy: Esme Vick MDService Date: 03/25/20 [facility] Phy:Interpreting Phy: Uli Reyes MD Admit Phy: Ordering Phy: Vinicius Baxter DO cc: ~ ABDOMEN AND PELVIS CT WITHOUT CONTRAST CT DOSE: 736.93 mGy.cm HISTORY: Lower abdominal pain. TECHNIQUE: Multiaxial CT images of the abdomen and pelvis were performed without contrast. A dose lowering technique was utilized adhering to the principles of ALARA. COMPARISON STUDY: None. FINDINGS: There is a 4 mm nodule within the right middle lobe. There are also 4 mm nodules within the lingula and left lower lobe on image 57. Pacemaker wires are noted. No pneumoperitoneum. No pneumatosis. No suspicious lytic or blastic osseous lesions. Suboptimal evaluation due to the motion artifact. Specifically, this affects the right upper quadrant with near nondiagnostic evaluation of the distal stomach/duodenum, herbie hepatis, and pancreatic head. The gallbladder appears surgically absent. The unenhanced liver, pancreas, and spleen appear grossly unremarkable. Normal adrenal glands. The kidneys are also suboptimally assessed due to motion artifact. However, no hydronephrosis. No retroperitoneal lymphadenopathy. Moderate calcified plaque within the normal caliber abdominal aorta. There is a large duodenal diverticulum. Questionable inflammatory change surrounding the proximal duodenum. However, this could be due to the motion artifact. The bladder is unremarkable. There is a 3 cm calcified uterine fibroid. There is are within normal limits. Mild pelvic floor collapse. Suboptimal evaluation for bowel pathology due to the lack of intravenous and oral contrast. Extensive colonic diverticulosis. No evidence for acute diverticulitis. No evidence for bowel obstruction. IMPRESSION: 1. Suboptimal evaluation due to the lack of intravenous contrast and motion artifact within the upper abdomen. 2. There is question of inflammatory change surrounding the proximal duodenum which could be due to motion artifact. This raises the possibility of a duodenitis or early acute pancreatitis. Recommend correlation with pancreatic enzymes for further evaluation. Endoscopy should also be considered if the patient is complaining of right upper quadrant pain to exclude the possibility of a duodenitis/peptic ulcer disease. 3. Colonic diverticulosis. No evidence for acute diverticulitis. 4. Additional findings as described above. ACT 112: Negative or not required by law. Electronically signed by: Uli Reyes M.D. 03/25/2020 8:48 PM Dictated: 03/25/202037 Transcribed: 03/25/202037 [facility], [place] [phone] XRay Report Patient: SHALOM LARA Date: 03/25/20 MR#: [id number]: [address] Acct ID:[id number]: [address] [facility] Zip: [place] [address] Age: 89Location: ED Sex: FRoom/Bed: Att Phy:Diagnosis: cp Kalani Phy: Nava Esme MDService Date: 03/25/20 Fam Phy:Interpreting Phy: Uli Reyes MD Admit Phy: Ordering Phy: Vinicius Baxter DO cc: ~ XR chest 1V portable HISTORY: Atypical Chest Pain COMPARISON: Chest 08/26/2013. FINDINGS: No focal lung consolidations to suggest pneumonia. No evidence for pulmonary edema. The heart is normal in size. There is a left-sided dual-chamber pacemaker. No pleural effusions. No pneumothorax. The bones are osteopenic. IMPRESSION: No significant change compared to the prior study. No acute process. ACT 112: Negative or not required by law. Electronically signed by: Uli Reyes M.D. 03/25/2020 8:02 PM Dictated: 03/25/202000 Transcribed: 03/25/202000 Code Status & VTE Plan Code Status Full code VTE Prophylaxis Plan VTE Prophylaxis will be ordered: Yes PG Care Time/CCT Total # of Minutes Spent Total Time Spent with Patient: Total time spent is greater than 50% in coordination of care (as documented) at patient's floor/unit and/or counseling patient: Coding Level of Care Code 96705 Initial Inpt Care Lvl 3 Diagnoses Acute duodenitis K29.80 Hypertension I10 Mixed hyperlipidemia E78.2 Memory loss R41.3 Complete left bundle branch block I44.7 H/O cardiac pacemaker Z95.0 Diabetes E11.9 Chronic kidney disease, stage 3 (moderate) N18.3
[2020-03-26] MEDS ORDERED: CARBOHYDRATES FOR HYPOGLYCEMIA PO PRN (00:09)
[2020-03-26] MEDS ORDERED: GLUCOSE 40% GEL 15 GM TUBE PO PRN (00:09)
[2020-03-26] MEDS ORDERED: ONDANSETRON INJ 2 MG/ML 2 ML VIAL IV PRN (00:09)
[2020-03-26] MEDS ORDERED: GLUCOSE 10 TABS/TUBE PO PRN (00:09)
[2020-03-26] MEDS ORDERED: DEXTROSE 50% 50 ML SYRINGE IV PRN (00:09)
[2020-03-26] MEDS ORDERED: GLUCAGON FOR INJ 1 MG VIAL SQ PRN (00:09)
[2020-03-26] MEDS: SODIUM CHLORIDE 0.9% 1000ML 1,000 ML IV SCH ×2 (00:20→10:30)
[2020-03-26] MEDS: NITROGLYCERIN 2% OINTMENT 30GM TUBE EXT SCH ×3 (00:31→13:32)
[2020-03-26] MEDS: METOPROLOL SUCC 50MG EXT REL TAB PO SCH ×2 (00:43→07:25)
[2020-03-26] MEDS: PANTOprazole 40 MG in SYRINGE 0 ML IV SCH ×2 (00:43→07:25)
[2020-03-26] MEDS ORDERED: Nursing to Pharmacy Communication SCH (04:45)
[2020-03-26 05:57] LABS: Hematocrit (blood only) 33.2 % (37-47); Hemoglobin 11.2 g/dL (12.0-16.0); Immature Granulocytes # (auto) 0.03 K/uL (0.00-0.02); Immature Granulocytes % (auto) 0.3 %; Lymphocytes # (auto) 1.05 K/uL (1.2-3.4); Mean Corpuscular Hemoglobin 30.7 pg (25-34); Mean Corpuscular Hgb Conc 33.7 g/dL (32-36); Mean Platelet Volume 9.4 fL (7.4-10.4); Monocytes # (auto) 0.83 K/uL (0.11-0.59); Monocytes % (auto) 8.7 %; Neutrophils # (auto) 7.63 K/uL (1.4-6.5); Platelet Count 188 K/uL (130-400); RDW Coefficient of Variation 13.4 % (11.5-14.5); RDW Standard Deviation 44.6 fL (36.4-46.3); Red Blood Count 3.65 M/uL (4.2-5.4); White Blood Count 9.54 K/uL (4.8-10.8)
[2020-03-26 06:06] LABS: INR 1.1 (0.9-1.1); Partial Thromboplastin Ratio 1.1; Partial Thromboplastin Time 31.9 Seconds (21.0-31.0); Prothrombin Time 11.2 Seconds (9.0-12.0)
[2020-03-26] MEDS: INSULIN ASPART 100 UNITS/ML 3 ML PEN SC SCH ×2 (06:28→13:32)
[2020-03-26] MEDS ORDERED: LEVOTHYROXINE SODIUM 25 MCG TABLET PO SCH (06:30)
--- NOTE | 2020-03-26 06:45 | Hospitalist Progress Note ---
Date of Service March 26, 2020 Assessment & Plan Admission and Anticipated Discharge Date Admission Date: March 25, 2020 Results & Data Results & Data ([facility]) Vital Signs (Past 12 Hours) Vital Signs Temp Pulse Pulse Resp BP BP Pulse Ox 03/26/20 03:39 36.5 C 61 16 124/70 95 03/26/20 01:09 86 03/26/20 01:03 36.5 C 97 H 18 161/77 H 98 03/26/20 00:09 36.5 C 97 H 18 161/77 H 98 03/25/20 23:52 89 16 99 03/25/20 23:00 90 16 160/77 H 99 03/25/20 21:00 90 16 133/71 98 03/25/20 19:38 90 98 03/25/20 19:00 36.8 C 98 H 18 149/86 H 98 Pulse Ox 03/26/20 03:39 03/26/20 01:09 03/26/20 01:03 03/26/20 00:09 98 03/25/20 23:52 03/25/20 23:00 03/25/20 21:00 03/25/20 19:38 03/25/20 19:00
[2020-03-26 07:00] LABS: Estimated Average Glucose 163 mg/dl; Hemoglobin A1C 7.3 % (4.5-5.6)
[2020-03-26 07:05] LABS: Albumin Globulin Ratio 0.8 (0.9-2); Albumin Level 2.9 gm/dl (3.4-5.0); BUN Creatinine Ratio 28.5 (10-20); Bilirubin,Total 0.4 mg/dl (0.2-1); Calcium 8.7 mg/dl (8.5-10.1); Creatinine Clr Calc Pharmacy 24.2 ml/min; Est GFR (Non-African American) 29.4; Globulin 3.7 gm/dl (2.5-4.0); Magnesium 1.9 mg/dl (1.8-2.4); Potassium 4.9 mmol/L (3.5-5.1); Total Protein 6.6 gm/dl (6.4-8.2)
[2020-03-26] MEDS ORDERED: INSULIN ASPART 100 UNITS/ML 3 ML PEN SC SCH (07:30)
[2020-03-26] MEDS ORDERED: HEPARIN SOD 5,000 UNIT/0.5 ML VIAL SQ SCH (09:00)
--- NOTE | 2020-03-26 16:48 | Electrocardiogram Report ---
Test Reason : Blood Pressure : / mmHG Vent. Rate : 098 BPM Atrial Rate : 098 BPM P-R Int : 168 ms QRS Dur : 126 ms QT Int : 384 ms P-R-T Axes : 074 -72 083 degrees QTc Int : 490 ms Normal sinus rhythm Left axis deviation Left bundle branch block Abnormal ECG When compared with ECG of 26-AUG-2013 12:08, Left bundle branch block is now Present Minimal criteria for Anterior infarct are no longer Present Confirmed by Anshu Morillo ([id number]) on 03/26/2020 4:47:46 PM Referred By: REFERRED SELF Confirmed By:Kel Morillo
--- NOTE | 2020-03-26 16:53 | Electrocardiogram Report ---
Test Reason : Blood Pressure : / mmHG Vent. Rate : 076 BPM Atrial Rate : 076 BPM P-R Int : 172 ms QRS Dur : 130 ms QT Int : 430 ms P-R-T Axes : 075 -59 071 degrees QTc Int : 483 ms Poor data quality, interpretation may be adversely affected Normal sinus rhythm Left axis deviation Non-specific intra-ventricular conduction block Abnormal ECG When compared with ECG of 25-MAR-2020 19:13, (unconfirmed) Non-specific intra-ventricular conduction block has replaced Left bundle branch block Confirmed by Anshu Morillo ([id number]) on 03/26/2020 4:52:27 PM Referred By: REFERRED SELF Confirmed By:Kel Morillo
--- NOTE | 2020-03-26 17:15 | Gastrointestinal Consultation ---
Date of Consultation March 26, 2020 History of Present Illness Attending Physician: Francis Dumont DO HPI: 89 yo female with PMH as below admit with epigastric pain for a few days that has now resolved. In ER, LFT's, lipase WNL, non con CT a/p was poor study but possibly showed ? duodenal inflammation, duodenal tic. At present she feels well. Denies NSAIDs, on outpt PPI. HEENT--PERRL, EOMI, mucous membranes and oropharynx dry. Neck--supple. No JVD. No bruits. Thyroid normal, trachea midline, no adenopathy. Heart--normal S1 and S2. No murmurs, rubs or gallops. Lungs--clear bilaterally, no respiratory distress, no accessory muscle use. Abdomen--normal bowel sounds and soft. Nondistended. Tender epigastric area. Extremities--no cyanosis or clubbing. No edema. Dermatologic--normal skin turgor, normal color, no abnormal lymph nodes, no rash. Neurologic--cranial nerves II through XII grossly intact. Rheumatologic--limited exam Psychiatric--normal affect Labs show hgb 11, nl LFT's and lipase A/P: Abdominal pain, CT with ? Duodenitis - Offered pt EGD to evaluate cause of abd pain and help r/o PUD; pt did not want to have this done. I attempted to contact pt's daughters Rashad to discuss EGD, but unable to reach. D/w hospitalist - pain appears improved and pt jes PO. Will defer EGD; discharge and further w/u per primary service. Will arrange for outpt GI f.u. Allergies Allergy/AdvReac Type Severity Reaction Status Date / Time levothyroxine Allergy Intermediate hives Verified 03/25/20 21:58 Home Medications Home Medications Medication Instructions Recorded Confirmed Type calcium carbonate-vitamin D3 600 1 cap PO DAILY cap 01/23/19 03/25/20 History mg calcium-200 unit capsule isosorbide mononitrate 30 mg 60 mg PO DAILY #180 tab 01/23/19 03/25/20 Rx tablet,extended release 24 hr multivitamin 1 tab PO DAILY 01/23/19 03/25/20 History lisinopril 10 mg tablet 10 mg PO DAILY #90 tab 01/05/20 03/25/20 Rx memantine 14 mg capsule 14 mg PO DAILY #30 cap 03/07/20 03/25/20 Rx sprinkle,extended release 24hr amlodipine [Norvasc] 2.5 mg PO DAILY 03/25/20 03/25/20 History aspirin [Aspirin Low Dose] 81 mg PO DAILY 03/25/20 03/25/20 History famotidine [Pepcid] 20 mg PO HS 03/25/20 03/25/20 History levothyroxine [Synthroid] 25 mcg PO DAILY 03/25/20 03/25/20 History metoprolol succinate [Toprol XL] 50 mg PO BID 03/25/20 03/25/20 History simvastatin [Zocor] 20 mg PO HS 03/25/20 03/25/20 History vitamins A,C,V-ywwb-dzxvyd 1 tab PO DAILY 03/25/20 03/25/20 History [Ocuvite Preservision] pantoprazole 40 mg PO DAILY 30 Days #30 tab 03/26/20 Rx Patient History Medical History Abscess of back Anemia Asthma Chronic kidney disease, stage 3 (moderate) Chronic reflux esophagitis Depression Hypertension Hypothyroidism Memory loss Mixed hyperlipidemia Pacemaker Secondary hyperparathyroidism Sensorineural hearing loss Vitamin D deficiency Surgical History No history of previous surgery Family History Denies family history of Ovarian cancer Prostate cancer Myocardial infarction Breast cancer Colorectal cancer Social History Smoking Status: Never smoker Hx Alcohol Use: No Hx Substance Use: No Preferred Language: Kittitian Communication Ability: Effective Terminal Gauger Supervisor Required: No Beliefs That Will Affect Care: None marital status: / Current Living Situation: Alone current occupational status: retired How many Children do You have: 2 Other Information That Helps Us Care for You: No Feels Safe at Home: Yes Safety Concerns: Feels Safe At This Time caffeine: Yes Dental Care, Regularly: No Physical Activity Frequency: Does not Exercise Seatbelt Use: always Sunscreen Use: No Results & Data ([facility]) Vital Signs (Past 12 Hours) Vital Signs Temp Pulse Pulse Resp BP Pulse Ox 03/26/20 16:00 36.3 C L 86 76 18 159/76 H 99 03/26/20 08:00 89 03/26/20 07:37 36.7 C 74 19 128/68 97
--- NOTE | 2020-03-26 18:30 | Discharge Summary ---
Date of Service March 26, 2020 Admission HPI Per Admitting Provider The patient is AN 89-year-old female with a past medical history including dementia, vitamin D deficiency, hypertension, diabetes mellitus with renal manifestations, sensorineural hearing loss, secondary hyperparathyroidism, pacemaker, mixed hyperlipidemia, memory loss, hypothyroidism, depression, chronic reflux esophagitis, CKD stage III, and hypertension. Her daughter who is with her, acts as primary historian, and reports that she received a call earlier in the day from her die lay out worker that her mother was not breathing as well as usual and was complaining of the chest and epigastric pain. Admission Exam Per Admitting Provider The patient is awake, alert, well developed and well nourished, normocephalic and atraumatic, lying in bed and in mild to moderate distress. HEENT--PERRL, EOMI, mucous membranes and oropharynx dry. Neck--supple. No JVD. No bruits. Thyroid normal, trachea midline, no adenopathy. Heart--normal S1 and S2. No murmurs, rubs or gallops. Lungs--clear bilaterally, no respiratory distress, no accessory muscle use. Abdomen--normal bowel sounds and soft. Nondistended. Tender epigastric area. Extremities--no cyanosis or clubbing. No edema. Dermatologic--normal skin turgor, normal color, no abnormal lymph nodes, no rash. Neurologic--cranial nerves II through XII grossly intact. Rheumatologic--limited exam Psychiatric--normal affect. Principal Diagnosis PUD Discharge Exam Constitutional WD/WN, vitals as above Respiratory normal respiratory effort, lungs clear to auscultation Cardiovascular RRR, no murmur, no edema Gastrointestinal (Abdomen) normal bowel sounds, soft, nontender, no hepatosplenomegaly Discharge Data Allergies Allergy/AdvReac Type Severity Reaction Status Date / Time levothyroxine Allergy Intermediate hives Verified 03/25/20 21:58 Consultations 03/25/20 21:11 ED Decision to Admit Stat 03/26/20 00:09 Consult Case Management - Discharge Planning Routine 03/26/20 04:11 Consult Gastroenterology Routine Ordered Studies 03/25/20 19:34 CT abd pelvis wo con Stat Hospital Course (1) Acute duodenitis: The patient is AN 89-year-old female with a past medical history including dementia, vitamin D deficiency, hypertension, diabetes mellitus with renal manifestations, sensorineural hearing loss, secondary hyperparathyroidism, pacemaker, mixed hyperlipidemia, memory loss, hypothyroidism, depression, chronic reflux esophagitis, CKD stage III, and hypertension who presented with epigastric tenderness and shortness of breath. Epigastric Pain, likely secondary to PUD vs Acute Duodenitis -Sucralfate, GI Cocktail, and Pantoprazole in ED to good effect and resolution of pain. -CT ab/pelv with concerns for acute Duodenitis -Cardiac r/o with EKG NSR and LBBB, without chest pain and negative troponin -Lipase 300 -GI consulted, discussed EGD with patient but declined currently, will follow in outpatient setting -Continue Pantoprazole outpatient HTN -Continued home Toprol 50mg BID HLD -Continued home Zocor DM -SSI while inpatient Memory Loss -Memantine held while inpatient (2) Abdominal pain, acute, epigastric: Total Time Total Time Spent Total Time Spent (In Minutes): <30 Discharge Plan Discharge Items Patient Disposition: Home - Self-Care Reason For Visit: EPIGASTRIC/CHEST PAIN Discharge Diagnosis: Duodenal Ulcer vs Duodenitis Condition on Discharge: Good Activity: Per Instructions section Non-emergency contact: Primary Care Provider Call non-emergency contact if: you have any medication questions and your symptoms worsen Follow-up/Referrals: Esme Vick MD [Primary Care Provider] - Diet: Regular Addtl Attending Provider Instructions: Darryn, It was our pleasure caring for you at [facility] from 03/25- 03/26/20 for your epigastric pain likely secondary to a duodenal ulcer vs duodenitis. Upon admission there was concern for whether or not your symptoms were due to your heart or your stomach. You had a cardiac evaluation which showed normal enzymes and were treated with medications that would help with stomach discomfort and ulcers which significantly improved your pain. A CT scan of your abdomen was completed which showed some inflammation in your duodenum (the first part of your small intestine). You were evaluated by our Fiberglass Grinder who felt that an EGD (scope to look at your stomach and duodenum) was not necessary at this time and that we could continue to control your symptoms with a PPI (acid reducing medication). You had noted that you felt much better prior to discharge and were deemed fit to be discharged home. Please follow the below instructions: -Please greens picker and continue to take your PPI, Pantoprazole 40mg once daily by mouth. This has been sent to your Pharmacy. -Please follow up with your PCP or Family doctor in the following week. -You were evaluated with our GI doctor who offered an EGD, but you declined at this time. You can continue to follow up with them in the outpatient setting. -Please continue to take your other home medications as prescribed. Pending Studies at Discharge: No Stand-Alone Forms: My [facility], Smoking Cessation Medications and DC Order Prescriptions: New pantoprazole 40 mg tablet,delayed release (DR/EC) 40 mg PO DAILY 30 Days Qty: 30 RF: 1 Continued lisinopril 10 mg tablet 10 mg PO DAILY Qty: 90 RF: 3 memantine 14 mg capsule,sprinkle,ER 24hr 14 mg PO DAILY Qty: 30 RF: 5 multivitamin [Daily Multi-Vitamin] tablet 1 tab PO DAILY RF: 0 Calcium 600 + D(3) 600 mg calcium- 200 unit capsule 1 cap PO DAILY RF: 0 isosorbide mononitrate 30 mg tablet extended release 24 hr 60 mg PO DAILY Qty: 180 RF: 0 aspirin [Aspirin Low Dose] 81 mg Tablet,Delayed Release (Dr/Ec) 81 mg PO DAILY RF: 0 amlodipine [Norvasc] 5 mg tablet 2.5 mg PO DAILY RF: 0 levothyroxine [Synthroid] 25 mcg tablet 25 mcg PO DAILY RF: 0 simvastatin [Zocor] 20 mg tablet 20 mg PO HS RF: 0 metoprolol succinate [Toprol XL] 50 mg tablet extended release 24 hr 50 mg PO BID RF: 0 vitamins A,C,[id number],160-113-100 [id number] Tablet 1 tab PO DAILY RF: 0 famotidine [Pepcid] 20 mg tablet 20 mg PO HS RF: 0 Discharge Orders: Discharge Order (Routine); Ordered 03/26/20 Ordered By: Rich Goyal Admission Data Admit Date/Time: 03/25/20 23:21 Attending Provider: Francis Dumont Admit Provider: Parvez Cunningham Primary Care Provider: Esme Vick Other Providers: Parvez Cunningham ; Andrew Hernandez Other Interventions: Discharge Summary Assessment (RN) Last Done: 03/26/20 17:12 Supervising Physician Co-Signing Physician Notes I personally examined the patient and verified all rosas points of history and exam, discussed case, and agree with decision making with Dr Goyal feeling better eating OK. GI input appreciatd - pt does not want scope though vitals noted nad heent nc at mmm breathing unlabored no accessory muscles abd soft nd nt no guarding no rebound apparent PUD -now feeling much better eating fine and benign exam -agree scope should be considered - but also agree w GI that since pt tolerating PO and doesn't want scope at this time, is safe for discharge on PPI w close outpt f/u stable for home otherwise as above Resident Activity Tracking Resident Involvement: Resident Care Provided Care Provided: Adult Hospital Medicine
--- NOTE | 2020-03-26 20:01 | Billing Data ---
Date of Service March 26, 2020 Coding Level of Care Code D/C Day Management <30 mins
[2020-03-26] MEDS ORDERED: SIMVASTATIN 20 MG TAB PO SCH (21:00)
== END 2020-03-26 18:56 | disposition home or self-care (01) | DRG 392 ==
LOC: ED 19:00 → 2S 23:21 → SUATTDRO 23:21 → 2S 23:52